=== PATIENT | male | born 1995 | race Caucasian/White ===

== ENCOUNTER 2025-01-03 08:02 | Emergency (ER) | payer BC ==
[2025-01-03 08:20] VITALS: RESP 18; TEMP 97; O2SAT 100
--- NOTE | 2025-01-03 09:11 | ERPHSYRPT ---
- History of Present Illness Time Seen by Provider: 01/03/25 08:40 Source: patient Exam Limitations: no limitations Patient Subjective Stated Complaint: pt here for pain to left foot since yesterday after he hit with a reciprocating saw. Triage Nursing Assessment: pt alert, walked in with limp, has abrasion to top of left foot. Physician History: Patient is a 29-year-old male presents to our emergency department for ev aluation of pain to the dorsum of his left foot. Patient states he was working with a saws all. Patient states he saws all injured his foot. Injury occurred yesterday. Patient is here today complaining of pain. Patient declined pain medication. Patient is ambulatory with a antalgic gait. Patient declined crutches. No other injuries reported. Tetanus is up-to-date. Patient is otherwise healthy. No significant past medical history. Patient voices no other complaints or concerns at this time. Portions of this note were created with voice recognition technology. There may be grammatical, spelling, punctuation or sound alike errors Method of Injury: direct blow Occurred: yesterday Quality: intermittent (Worse with weightbearing.) Severity of Pain-Max: moderate Severity of Pain-Current: mild Lower Extremities Pain: foot: left Modifying Factors: Improves With: other (Weightbearing) Associated Symptoms: none Allergies/Adverse Reactions: No Known Drug Allergies Allergy (Unverified 01/03/25 08:08) Home Medications: No Reportable Medications [No Reported Medications] 01/03/25 [History] Hx Tetanus, Diphtheria Vaccination/Date Given: Yes (2017) Hx Influenza Vaccination/Date Given: No Hx Pneumococcal Vaccination/Date Given: No Immunizations Up to Date: Yes Travel Risk - International Travel Have you traveled outside of the country in past 3 weeks: No - Emerging Infectious Disease Are you exhibiting symptoms associated with any current EIDs: No - Review of Systems Constitutional: No Symptoms, No Fever, No Chills Eyes: No Symptoms Ears, Nose, & Throat: No Symptoms Respiratory: No Symptoms, No Cough, No Dyspnea Cardiac: No Symptoms, No Chest Pain, No Edema, No Syncope Abdominal/Gastrointestinal: No Symptoms, No Abdominal Pain, No Nausea, No Vomiting, No Diarrhea Genitourinary Symptoms: No Symptoms, No Dysuria Musculoskeletal: No Symptoms, No Back Pain, No Neck Pain Skin: No Symptoms, No Rash Neurological: No Symptoms, No Dizziness, No Focal Weakness, No Sensory Changes Psychological: No Symptoms Endocrine: No Symptoms Hematologic/Lymphatic: No Symptoms Immunological/Allergic: No Symptoms All Other Systems: Reviewed and Negative - Past Medical History Pertinent Past Medical History: No - Past Surgical History Past Surgical History: No - Social History Smoking Status: Never smoker Exposure to second hand smoke: No Drug Use: none - Social Determinants of Health Will the patient participate in the screening: Declined to provide - Nursing Vital Signs Nursing Vital Signs: Initial Vital Signs Temperature 97.0 F 01/03/25 08:19 Pulse Rate 54 L 01/03/25 08:19 Respiratory Rate 18 01/03/25 08:19 Blood Pressure 128/78 01/03/25 08:19 O2 Sat by Pulse Oximetry 100 01/03/25 08:19 Pain Scale Pain Intensity 3 - Physical Exam General Appearance: no apparent distress, alert Eyes, Ears, Nose, Throat Exam: normal ENT inspection Neck Exam: normal inspection, full range of motion Cardiovascular/Respiratory Exam: heart sounds normal, no respiratory distress Back Exam: normal inspection, No vertebral tenderness Hips Exam: bilateral: non-tender, normal inspection, normal range of motion, no evidence of injury Legs Exam: bilateral leg: non-tender, normal inspection, normal range of motion, no evidence of injury Knees Exam: bilateral knee: non-tender, normal inspection, normal range of motion, no evidence of injury Ankle Exam: bilateral ankle: non-tender, normal inspection, normal range of motion, no evidence of injury Foot Exam: right foot: non-tender, normal inspection, normal range of motion, no evidence of injury, bilateral foot: soft tissue tenderness, other (Superficial abrasion dorsal aspect left foot just superficial to the first ray. No bleeding. The involved extremities neurovascular intact distally compartments are soft cap refill less than 2 seconds. No draining lesions. No lymphangitis no cellulitis.) Neuro/Tendon Exam: normal sensation, normal motor functions Mental Status Exam: alert, oriented x 3, cooperative Skin Exam: normal color, warm, dry SpO2 Interpretation: normal SpO2: 100 O2 Delivery: Room Air - Course Nursing assessment & vital signs reviewed: Yes - Radiology Exams Foot X-ray Interpretation: Teleradiologist Report (No fracture or dislocation.) Ordered Tests: Active Orders 24 hr Category Date Time Status FOOT (MINIMUM 3 VIEWS) Stat Exams 01/03/25 08:17 Completed - Progress Progress: improved Progress Note: 29-year-old male presents to our ED for pain to the dorsum of his left foot. Patient states he injured his left foot using a saws all yesterday. Patient reports his pain worse with weightbearing. Pain essentially resolves at rest. Physical exam reveals a superficial abrasion. There is some soft tissue tenderness. The involved foot and extremity are both neurovascular tact distally compartments are soft cap refill less than 2 seconds. Patient declined pain medication. Patient declined bilateral axillary crutches. X-ray negative for fracture or dislocation. An Ortho referral completed. Patient to follow- up in the orthopedic clinic on Thursday if his pain continues. Otherwise if pain resolves and patient is asymptomatic no need for follow-up in orthopedic clinic. Portions of this note were created with voice recognition technology. There may be grammatical, spelling, punctuation or sound alike errors Complexity of problem addressed is moderate acute complicated. No critical care time. Complex of data reviewed and analyzed as moderate. Test ordered test reviewed results analyzed and correlated clinically with history and physical exam. Risk of complication and or risk of morbidity/mortality of patient management is low. Vital stable. Time spent to discharge patient is approximately 15 minutes. Plan of care established for shared decision making. No social determinants of health present to impede follow-up. Portions of this note were created with voice recognition technology. There may be grammatical, spelling, punctuation or sound alike errors 01/03/25 09:19 Counseled pt/family regarding: diagnosis, need for follow-up, rad results - Departure Departure Disposition: Home Clinical Impression: Foot abrasion, Foot contusion Condition: Stable Critical Care Time: No Referrals: DOCTOR,NO FAMILY [Primary Care Provider, UNKNOWN] - Follow up/PCP as directed MAGDALENA JIMENEZ MD [ACTIVE STAFF, FAMILY PRACTICE] - Follow up/PCP as directed Instructions: Contusion (DC), Wound care - ED discharge instructions Additional Instructions: Discharge/Care Plan KATHERYN WALTER was seen on 01/03/25 in the Emergency Room. The patient was counseled regarding Diagnosis,Lab results, Imaging studies, need for follow up and when to return to the Emergency Room. Prescriptions given: Discharge Note I have spoken with the patient and/or caregivers. I have explained the patient's condition, diagnosis and treatment plan based on the information available to me at this time. I have answered the patient's and/or caregiver's questions and addressed any concerns. The patient and/or caregivers have as good understanding of the patient's diagnosis, condition and treatment plan as can be expected at this point. The vital signs have been stable. The patient's condition is stable and appropriate for discharge from the emergency department. The patient will pursue further outpatient evaluation with the primary care physician or other designated or consulting physician as outlined in the discharge instructions. The patient and/or caregivers are agreeable to this plan of care and follow-up instructions have been explained in detail. The patient and/or caregivers have received these instruction. The patient/and or caregivers are aware that any significant change in condition or worsening of symptoms should prompt an immediate return to this or the closest emergency department or call 911. Outpatient Orders: Ortho Referral Time Frame: 1 Day, Facility: [facility]. Hosp, Location: [facility]
--- NOTE | 2025-01-03 09:43 | XRAY ---
Indication: Pain following injury. Comparison: None 3 nonweightbearing views left foot demonstrates normal bones, articulation, and soft tissues with incidental tiny cuboid accessory ossicle.
[2025-01-03 09:56] VITALS: BP 120/60; PULSE 60
== END 2025-01-03 09:55 | disposition home or self-care (01) ==
LOC: ED 08:02
DX: S90.812A Abrasion, left foot, initial encounter (principal); S90.32XA Contusion of left foot, initial encounter; W22.8XXA Striking against or struck by other objects, initial encounter
CPT/HCPCS: 73630; 99282; 99283